=== PATIENT | male | born 1980 | race African-American/Black ===

== ENCOUNTER 2022-04-03 22:48 | Emergency (ER) | payer SELFPAY ==
[~2022-04-03] VITALS: Ht 172.7 cm; Wt 89.8 kg
[2022-04-03 23:44] VITALS: BP 117/94
[2022-04-04] MEDS ORDERED: T3 PO (03:26)
== END 2022-04-04 03:45 | disposition home or self-care (01) ==
LOC: ER 22:48
DX: M79.641 Pain in right hand (principal)
CPT/HCPCS: 29125; 73120; 99283